=== PATIENT | male | born 1955 | race Caucasian/White ===

== ENCOUNTER 2024-06-23 04:53 | Emergency (ER) | payer MEDICARE, OTHER, SELFPAY ==
[2024-06-23 04:55] VITALS: BP 128/90
--- NOTE | 2024-06-23 05:41 | EDRN ---
it has not come out. Pt has pain and no drainage. Pt states that he feels like he is under water and he cannot hear anything.
--- NOTE | 2024-06-23 06:10 | ED.GENMED ---
History of Present Illness
General
Chief Complaint: Ear Problem
Time Seen by Provider: 06/23/24 06:04
History of Present Illness
History of Present Illness:
69-year-old male presents emergency department for evaluation of right ear pain and hearing loss after irrigating his right ear 3 days ago. States that it feels like he is underwater. No headaches or vision changes. No otorrhea
Review of Systems
Review of Systems
Allergies reviewed?: Yes
All Other Systems: ROS reviewed and negative except as documented in HPI and ROS
Phy Exam
Physical Exam
Physical Exam:
GEN: Well appearing, NAD, WDWN
HEENT: Oral mucosa moist, no scleral icterus. There is an erythematous right external auditory canal with clumped exudate deep within the EAC, unable to visualize TM. Left tympanic membrane clear with normal EAC, no palpable pre or postauricular
adenopathy bilaterally
Cardiac: Regular rate
Lung: No respiratory distress, no tachypnea
MSK: No gross deformity or injuries
Skin: Good color, no pallor or jaundice, no rashes
Neuro: AO x3, moves all extremities freely
Psych: Calm, cooperative
Course
Vital Signs
Initial and Last Documented VS:
Initial Vital Signs
Temp Pulse Resp BP Pulse Ox
98 F 58 18 128/90 100
06/23/24 04:55 06/23/24 04:55 06/23/24 04:55 06/23/24 04:55 06/23/24 04:55
Last Documented Vital Signs
Temp Pulse Resp BP Pulse Ox
98 F 58 18 128/90 100
06/23/24 04:55 06/23/24 04:55 06/23/24 04:55 06/23/24 04:55 06/23/24 04:55
MDM/Problems Addressed
MDM/Problems Addressed:
Likely otitis externa from recent irrigation however cannot rule out otitis media, hesitant to irrigate or debride the ear canal due to the deep nature of the exudate, do not want to risk TM perforation. Will provide oral antibiotics if not
improving in the next 72 hours
*Critical Care Note
Total Time (30-74mins, 75-104mins- exclusive of procedures): Not Applicable
ED Attending Note
-
Portions of this chart may have been created with voice recognition software.� Occasional wrong word or��sound alike� substitutions may have occurred due to the inherent limitations of voice recognition software.
Discharge Plan
Departure
Patient Disposition: Home (Routine Discharge)
Date of Disposition: 06/23/24
Time of Disposition: 06:10
Patient with high blood pressure during this ER visit?: No
Discharge Problem:
External otitis of right ear
Instructions: Outer Ear Infection (DC)
Prescriptions:
New
ciprofloxacin-dexamethasone 0.3-0.1 % drops,suspension
4 drp otic (ear) BID 7 Days Qty: 7.5 0RF
amoxicillin 500 mg tablet
500 mg PO Q12H Qty: 20 0RF
No Action
prednisone 20 mg tablet
40 mg PO DAILY Qty: 10 0RF
Referrals:
Arun Marte MD [Family Provider] -
Activity Restrictions/Additional Instructions:
Do not begin oral antibiotics for 3 days; use this only if your symptoms do not improve in the next 48-72 hours
You may try hot compresses to reduce pain and allow for further ear drainage
Interventions
Interventions:
*Risk Screen - Suicide Last Done: 06/23/24 04:55
*General Assessment Last Done: 06/23/24 05:37
*Neglect/Abuse Screening Last Done: 06/23/24 04:55
*ED- Fall Risk Assessment Last Done: 06/23/24 05:37
*ED COVID-19 Vaccine History Last Done: 06/23/24 05:37
*Nursing Disposition Last Done: 06/23/24 06:15
Discharge Date and Time
Discharge Date/Time: 06/23/24 06:15
Print Language: [place]
== END 2024-06-23 06:15 | disposition home or self-care (01) ==
LOC: EMR 04:53
PROVIDERS: EMERGENCY PHYSICIAN Emergency Medicine; FAMILY PHYSICIAN Internal Medicine
DX: H60.91 Unspecified otitis externa, right ear (principal)
CPT/HCPCS: 99282

== ENCOUNTER 2025-01-23 15:09 | Emergency (ER) | payer MEDICARE, OTHER, SELFPAY ==
[2025-01-23 15:11] VITALS: BP 156/66
--- NOTE | 2025-01-23 15:29 | ED.GENMED ---
History of Present Illness
General
Chief Complaint: Skin Surface Trauma
Source: patient
Time Seen by Provider: 01/23/25 15:13
History of Present Illness
History of Present Illness:
69-year-old male presenting to the emergency department for evaluation after he excellently cut the dorsal aspect of his left thumb while trying to open a bottle of wine an hour prior to arrival. Patient is right-hand dominant, tetanus is
up-to-date, no other injuries were sustained.
Past History
Past History
ED Past Medical History: HTN and Hypercholesterolemia
ED Past Surgical History: Orthopedic and Urological
Social History
Tobacco: Non-smoker
Alcohol: Occasional
Drug: None
Personal:
Living: with family
Employment: Retired
Review of Systems
Review of Systems
All Other Systems: ROS reviewed and negative except as documented in HPI and ROS
Phy Exam
Physical Exam
Physical Exam:
GENERAL: Alert , in no apparent distress
EYE: conjunctiva clear
Head: Normocephalic atraumatic
NECK: Supple,
ENT: mmm.
LUNGS: no acute respiratory distress
NEUROLOGICAL: Alert and oriented
SKIN: Warm and dry, superficial 1-1/2 cm laceration along the dorsal aspect of the left thumb just proximal to the MCP joint, bleeding controlled with light pressure.
MUSCULOSKELETAL: well perfused. Full range of motion of the left thumb including opposition. Sensation grossly intact to light touch. No tendon visualized
PSYCH: Normal and appropriate interaction.
Scores
Heart Failure Risk
Heart Failure Risk Score: Not Applicable
Heart Score for Chest Pain Patients
STEMI patient?: Not applicable
Withdrawal Assessment of Alcohol
Withdrawal Assessment Completed?: Not applicable
Course
Vital Signs
Initial and Last Documented VS:
Initial Vital Signs
Temp Pulse Resp BP Pulse Ox
98.4 F 64 20 156/66 99
01/23/25 15:11 01/23/25 15:11 01/23/25 15:11 01/23/25 15:11 01/23/25 15:11
Last Documented Vital Signs
Temp Pulse Resp BP Pulse Ox
98.4 F 64 20 156/66 99
01/23/25 15:11 01/23/25 15:11 01/23/25 15:11 01/23/25 15:11 01/23/25 15:29
Procedures
Laceration Closure
Left Thumb:
Status of Wound: clean
Size of Wound in cm: 1.5
Description of Wound Edges: sharp
Preparation: cleaned with saline
Anesthesia: 1% Lidocaine
Revision/Debridement: routine- no revision
Type of Closure: single layer closure
Skin Closure Material: 5-0 nylon
Number of sutures: 7
MDM/Problems Addressed
Differential Diagnosis Includes:
Superficial laceration
No concern for tendon or nerve involvement
No concern for fracture
MDM/Problems Addressed:
69-year-old male presenting the ER for evaluation of laceration to the dorsal aspect of the left thumb. No other injuries were sustained. Laceration repaired as above without difficulty. Dressing was placed. Wound care advised. Suture removal
10 to 12 days. Aware of return precautions.
*Pulse Oximetry
SaO2: 99
Oxygen Mode of Delivery: Room air
Patient hypoxic: no
*Critical Care Note
Total Time (30-74mins, 75-104mins- exclusive of procedures): Not Applicable
ED Attending Note
-
Portions of this chart may have been created with voice recognition software.� Occasional wrong word or��sound alike� substitutions may have occurred due to the inherent limitations of voice recognition software.
Discharge Plan
Departure
Patient Disposition: Home (Routine Discharge)
Date of Disposition: 01/23/25
Time of Disposition: 15:29
Patient with high blood pressure during this ER visit?: Yes
Discharge Problem:
Laceration of left thumb
Instructions: Laceration Repair With Stitches (DC)
Prescriptions:
No Action
prednisone 20 mg tablet
40 mg PO DAILY Qty: 10 0RF
ciprofloxacin-dexamethasone 0.3-0.1 % drops,suspension
4 drp otic (ear) BID 7 Days Qty: 7.5 0RF
amoxicillin 500 mg tablet
500 mg PO Q12H Qty: 20 0RF
Activity Restrictions/Additional Instructions:
Suture removal in 10-12 days
Interventions
Interventions:
*Risk Screen - Suicide Last Done: 01/23/25 15:23
*Neglect/Abuse Screening Last Done: 01/23/25 15:22
*ED- Fall Risk Assessment Last Done: 01/23/25 15:22
*ED COVID-19 Vaccine History Last Done: 01/23/25 15:22
*ED Influenza Vaccine History Last Done: 01/23/25 15:22
ED-Skin Assessment Last Done: 01/23/25 15:25
Discharge Date and Time
Print Language: [place]
== END 2025-01-23 15:38 | disposition home or self-care (01) ==
LOC: EMR 15:09
PROVIDERS: EMERGENCY PHYSICIAN Emergency Medicine; FAMILY PHYSICIAN Internal Medicine
DX: S61.012A Laceration without foreign body of left thumb without damage to nail, initial encounter (principal); W45.8XXA Other foreign body or object entering through skin, initial encounter; E78.00 Pure hypercholesterolemia, unspecified; I10 Essential (primary) hypertension
CPT/HCPCS: 99282; 12001

== ENCOUNTER 2025-02-07 18:37 | Emergency (ER) | payer MEDICARE, OTHER, SELFPAY ==
[2025-02-07 18:38] VITALS: BP 146/82
--- NOTE | 2025-02-07 19:35 | ED.SKININJ ---
HPI-Injury
General
Chief Complaint: Wound Check/Suture Removal
Source: patient
Exam Limitations: none
Time Seen by Provider: 02/07/25 19:29
Nursing documentation reviewed up to this point in time: agreed with
History of Present Illness-Injury
Is this injury a work related problem?: No
Is pt an associate of [facility]?: No
Initial Injury comments:
Patient to the emergency department for suture removal to left dorsal hand. Sutures were placed on Thanksgiving, patient states he has been away for the past 2 weeks. Reports no issue with healing. Brought self to the emergency department for
evaluation.
Past History
Past History
ED Past Medical History: HTN and Hypercholesterolemia
ED Past Surgical History: Orthopedic and Urological
Social History
Tobacco: Non-smoker
Alcohol: Occasional
Drug: None
Personal:
Living: with family
Employment: Retired
Review of Systems
Review of Systems
Allergies reviewed?: Yes
All Other Systems: ROS reviewed and negative except as documented in HPI and ROS
Constitutional: Reports no symptoms
Musculoskeletal: Reports no symptoms
Skin: Reports other (Sutures intact to left dorsal hand. No signs or symptoms of infection)
Neurological: Reports no symptoms
Psychiatric: Reports no symptoms
Phy Exam
General Physical Exam
General Presentation: well appearing and no apparent distress
General age: appears stated age
General Skin: warm and dry
General Habitus: normal
General Mental: alert
Musculoskeletal Exam
Musculoskeletal Exam: full ROM and neuro vasc intact
Skin Exam
Skin Exam: normal color, warm/dry, no rash and other (Sutures intact to laceration repair to left dorsal hand. No signs or symptoms of infection. Sutures were removed by me without difficulty, patient tolerated procedure without incident)
Psychiatric Exam
Psychiatric Exam: normal mood/affect
Course
Vital Signs
Initial and Last Documented VS:
Initial Vital Signs
Temp Pulse Resp BP Pulse Ox
97.9 F 60 16 146/82 98
02/07/25 18:38 02/07/25 18:38 02/07/25 18:38 02/07/25 18:38 02/07/25 18:38
Last Documented Vital Signs
Temp Pulse Resp BP Pulse Ox
97.9 F 55 19 132/82 98
02/07/25 18:38 02/07/25 19:40 02/07/25 19:40 02/07/25 19:40 02/07/25 19:40
*Pulse Oximetry
SaO2: 98
Oxygen Mode of Delivery: Room air
Patient hypoxic: no
*Critical Care Note
Total Time (30-74mins, 75-104mins- exclusive of procedures): Not Applicable
ED Attending Note
-
Portions of this chart may have been created with voice recognition software.� Occasional wrong word or��sound alike� substitutions may have occurred due to the inherent limitations of voice recognition software.
Discharge Plan
Departure
Patient Disposition: Home (Routine Discharge)
Date of Disposition: 02/07/25
Time of Disposition: 19:35
Patient with high blood pressure during this ER visit?: No
Condition: Good
Covid-19: Not Applicable
Discharge Problem:
Visit for suture removal
Instructions: Stitches Removal
Prescriptions:
No Action
prednisone 20 mg tablet
40 mg PO DAILY Qty: 10 0RF
ciprofloxacin-dexamethasone 0.3-0.1 % drops,suspension
4 drp otic (ear) BID 7 Days Qty: 7.5 0RF
amoxicillin 500 mg tablet
500 mg PO Q12H Qty: 20 0RF
Activity Restrictions/Additional Instructions:
Follow-up with your family doctor as needed
Interventions
Interventions:
*Risk Screen - Suicide Last Done: 02/07/25 18:38
*General Assessment Last Done: 02/07/25 18:38
*Neglect/Abuse Screening Last Done: 02/07/25 18:38
*ED COVID-19 Vaccine History Last Done: 02/07/25 18:38
*ED Influenza Vaccine History Last Done: 02/07/25 18:38
[facility] Fall Risk Assessment Tool Last Done: 02/07/25 19:40
*Nursing Disposition Last Done: 02/07/25 19:40
ED-Skin Assessment Last Done: 02/07/25 19:40
Discharge Date and Time
Discharge Date/Time: 02/07/25 19:43
Print Language: [id number]
[2025-02-07 19:40] VITALS: BP 132/82
== END 2025-02-07 19:43 | disposition home or self-care (01) ==
LOC: EMR 18:37
PROVIDERS: EMERGENCY PHYSICIAN Emergency Medicine; FAMILY PHYSICIAN Internal Medicine
DX: Z48.02 Encounter for removal of sutures (principal); I10 Essential (primary) hypertension; E78.00 Pure hypercholesterolemia, unspecified
CPT/HCPCS: 99281